=== PATIENT | female | born 1995 | race Hispanic/Latino ===

== ENCOUNTER 2018-07-26 13:13 | Inpatient (IN) | payer MEDICAID, SELFPAY ==
[2018-07-26 13:54] VITALS: BMI 28.5
[2018-07-26] MEDS ORDERED: Betamet Acet/Betamet Na Ph 30 MG/5 ML VIAL ONE (14:39)
[2018-07-26] MEDS ORDERED: Magnesium Sulfate 20 gm/500 ml 20 GM/500 ML BAG ONE (14:42)
[2018-07-26] MEDS ORDERED: Lactated Ringer's 1,000 ML IV SCH (14:51)
[2018-07-26] MEDS ORDERED: Promethazine HCl 25 MG/ML VIAL IM PRN ×3 (14:51→20:32)
[2018-07-26] MEDS ORDERED: Butorphanol Tartrate 1 MG/ML VIAL SLOW IVP PRN (14:51)
[2018-07-26] MEDS ORDERED: Lidocaine 1% (PF) 30 ML VIAL SC PRN (14:51)
[2018-07-26] MEDS ORDERED: NS / Oxytocin 40 units/1000ml 1,000 ML IV PRN (14:51)
[2018-07-26] MEDS ORDERED: Ondansetron PF 4 MG/2 ML Vial IVP PRN ×3 (14:51→20:32)
[2018-07-26] MEDS ORDERED: Calcium Gluc 4.6 MEQ/10 ML (100 MG/ML) SLOW IVP PRN (14:51)
[2018-07-26] MEDS ORDERED: Bicitra 30 ML UDCUP PO SCH (14:51)
[2018-07-26] MEDS ORDERED: CEFAZOLIN 2 GM in Premix Bag 1 BAG IVPB SCH ×2 (14:51→17:15)
[2018-07-26] MEDS ORDERED: Penicillin G Potassium 5 MILL.UNITS VIAL ONE (14:58)
[2018-07-26] MEDS ORDERED: Betamet Acet/Betamet Na Ph 30 MG/5 ML VIAL IM SCH (15:00)
[2018-07-26] MEDS ORDERED: Penicillin G Potassium 5 MILL.UNITS in Sodium Chloride 0.9% 100 ML IVPB SCH (15:00)
[2018-07-26] MEDS ORDERED: Magnesium Sulfate 20 gm/500 ml 20 GM/500 ML BAG IVPB SCH (15:00)
[2018-07-26 15:06] LABS: Hemoglobin 11.5 g/dL (12.0-16.0); Mean Corpuscular HGB CONC 32.9 g/dL (32.0-36.0); Mean Corpuscular Hemoglobin 30.4 pg (27.0-31.0); Mean Corpuscular Volume 92.2 fL (78.0-98.0); Mean Platelet Volume 9.9 fL (7.4-10.4); Platelet Count 220 thou/uL (130-400); RBC Distribution Width 12.3 % (11.5-14.5); Red Blood Cell (RBC) Count 3.77 mill/uL (4.20-5.40); White Blood Cell (WBC) Count 12.6 thou/uL (4.8-10.8)
[2018-07-26] MEDS ORDERED: Dexamethasone 20 MG/5 ML VIAL ONE (15:12)
[2018-07-26] MEDS ORDERED: Ketorolac Tromethamine 30 MG/ML VIAL ONE ×2 (15:12→18:28)
[2018-07-26] MEDS ORDERED: PHENYLEPHRINE-NS 100 MCG/ML 10 ML SYRINGE ONE ×2 (15:12→17:13)
[2018-07-26] MEDS ORDERED: Ondansetron PF 4 MG/2 ML Vial ONE ×2 (15:12→17:13)
[2018-07-26 15:39] LABS: Syphilis Antibody Nonreactive (Nonreactive); Syphilis Antibody Index 0.02 S/CO (<1.00 Non-Reactive)
[2018-07-26] MEDS ORDERED: Indomethacin 25 mg Capsule PO SCH ×2 (15:45→21:00)
--- NOTE | 2018-07-26 15:48 | HP ---
TIME OF ADMISSION: 1445 hours. REASON FOR ADMISSION: A 25 weeks' gestation with labor. HISTORY OF PRESENT ILLNESS: Ms. Modesto Pina is a 23-year-old, G1, P1, who is at 25 weeks and 4 days by stated MATILDE of 11/04/18, who receives care in [place]. She reports some bleeding today and mild back pain. She denies rupture of membranes. She reports an active fetus. Antepartum records not available. The patient reports uncomplicated . CERTIFIED SKI PATROLLER HISTORY: As noted in the HPI. MEDICAL HISTORY: Denies. SURGICAL HISTORY: Denies. MEDICATIONS: vitamins. ALLERGIES: DENIES. SOCIAL HISTORY: Denies tobacco, alcohol, or IV drug abuse. FAMILY HISTORY: Noncontributory. REVIEW OF SYSTEMS: Noncontributory. PHYSICAL EXAMINATION: GENERAL: female, resting comfortably. VITAL SIGNS: Blood pressure 118/72, pulse 85, respirations 18, and temperature 98.4. HEENT: Within normal limits. LUNGS: Clear to auscultation bilaterally. HEART: Regular rhythm. ABDOMEN: Soft. No obvious palpable contractions noted. No CVA tenderness noted. Vulva is without lesions. Vagina; vaginal exam was performed. Large bag of water without palpable cervix was encountered. EXTREMITIES: Without clubbing, cyanosis, or edema. FHTs are 140s. DIAGNOSTIC STUDIES: Bedside ultrasound was performed by myself, revealed a fetus in transverse presentation with the head in the maternal left upper quadrant. The placenta seemed to be anterior. The cervix was approximately 3 cm dilated, at the level of the internal cervical os, and bulging bag of water up to 6 to 7 cm was noted in the vagina. Of note, there was no evidence of umbilical cord in the amniotic bag. IMPRESSION: cervical dilatation, possible early labor with bulging bag of water. At this time, no evidence of chorioamnionitis, abruption, or active labor. PLAN: We will admit the patient, stabilize with IV fluids, magnesium sulfate neuroprotection, betamethasone for lung maturity, penicillin for group B Strep status unknown at 25 weeks gestation, draw a full OB lab panel, and assess the patient's true gestational age, EFW, with ultrasound, and assess for labor versus cervical incompetence. If no evidence of active labor, we will attempt to facilitate maternal transport to [place] or [place] for higher level of care for [address] Sy, business process manager notified of the patient's presence on the unit. Job ID: [id number] MTDD
--- NOTE | 2018-07-26 16:03 | ULT ---
ULTRASOUND OBSTETRICAL COMPLETE: DATE: 07/26/2018. HISTORY: A 23-year-old female with labor and bulging sac. Dr. Alexis and nurse Michael were present during the ultrasound scan and are aware of the findings. FINDINGS: number: Wong. lie: Transverse with head to maternal left. Maternal cervix: Dilated. Internal os is approximately 1.5 cm in caliber, allowing amniotic fluid co ntained within membrane to herniate into the vaginal cavity. This herniated portion of the amniotic sac measures approximately 8 cm in diameter. Placenta: Anterior. Inferior edge of placenta is at the edge of the open internal cervical os, but d oes not cover it. Amniotic fluid volume: JUAN R 13 cm. heart rate: 168 b.p.m. The following anatomy is visualized, with no evidence of anomalies: Head, lateral ventricles, 4-chamber heart, stomach, kidneys, cord insertion, bladder, lower extremiti es, and 3-vessel cord. biometry: Head circumference (HC): 23.2 cm 25 w 1 d Biparietal diameter (BPD): 6.3 cm 25 w 4 d Abdominal circumference (AC): 21.0 cm 25 w 4 d Femur length (FL): 4.6 cm 25 w 2 d Average ultrasound age (AUA): 25 w 2 d Estimated date of delivery (MATILDE): 11/06/2018. Last menstrual period (LMP): 01/28/2018. Gestational age by LMP: 25 w 4 d. Estimated weight (EFW): 810 g+/- 120 g (1 lb 13 oz +/- 40z). IMPRESSION: 1. Live late second trimester intrauterine gestation. 2. Estimated gestational age of 25 weeks, 2 days. 3. Transverse lie. 4. Dilated and effaced cervix through which an 8 cm bulging component of amniotic sac and membrane he rniates into the vaginal cavity. CODE CR JN R POS: [facility]
[2018-07-26] MEDS: Lactated Ringer's 1,000 ML IV SCH (16:10)
[2018-07-26 16:37] LABS: HBSAB Concentration 4049.71 mIU/mL; Hep B Surf AB Reactive (NonReactive)
[2018-07-26] MEDS ORDERED: NIFEdipine 10 MG CAP ONE (16:49)
[2018-07-26] MEDS ORDERED: NIFEdipine 10 MG CAP PO PRN (16:51)
[2018-07-26 16:54] LABS: HBSAg Index 0.24 S/CO (0-0.99); HIV (1/2) Antibody/Antigen Non-Reactive (NonReactive); HIV 1/2 INDEX 0.14 S/CO (<1.00); Hep B Surf Ag Non-Reactive S/CO (NonReactive)
[2018-07-26] MEDS ORDERED: NIFEdipine 10 MG CAP PO SCH ×2 (17:00→17:30)
[2018-07-26] MEDS ORDERED: Bicitra 30 ML UDCUP ONE (17:07)
[2018-07-26] MEDS ORDERED: MORPHINE 5 MG/10 ML PF VIAL ONE (17:13)
[2018-07-26] MEDS ORDERED: Dexamethasone 4 mg/ml Vial ONE (17:13)
[2018-07-26] MEDS ORDERED: Oxytocin 10 UNITS/ML VIAL ONE ×2 (17:13→17:51)
--- NOTE | 2018-07-26 17:33 | PRG ---
DATE OF SERVICE: 07/26/2018 TIME OF SERVICE: 1715 hours. SUBJECTIVE: The patient continues to contract despite having received one dose of Procardia as well as her magnesium sulfate loading dose, IV fluids, and stadol. Contractions are now every 1 to 2 minutes. They are firm. They are causing the patient pain, 7 to 8/10. Ultrasound revealed that the internal cervical os is enlarged approximately 3 cm. Umbilical cord is noted to be significantly present in the lower uterine segment and cervix. Considering all these things, it appears there is little hope of prolonging this safely. In addition, awaiting spontaneous rupture of membranes increases the risk of morbidity associated with cord prolapse. We will go ahead and proceed with primary section with classical uterine incision. Anesthesia and Neonatology notified. 2 g [facility] for antibiotic prophylaxis. We will anticipate proceeding with spinal anesthesia. Job ID: [id number]
[2018-07-26] MEDS ORDERED: Ondansetron HCl/PF 4 MG/2 ML Vial IVP PRN (18:26)
[2018-07-26] MEDS ORDERED: HYDROmorphone 2 MG/ML VIAL SLOW IVP PRN (18:26)
[2018-07-26] MEDS ORDERED: Naloxone HCl 0.4 mg/ml Vial IV PRN (18:26)
[2018-07-26] MEDS ORDERED: Promethazine HCl 25 MG SUPP PR PRN (18:26)
[2018-07-26] MEDS ORDERED: L&D-Morphine 4 MG/ML VIAL SLOW IVP PRN (18:26)
[2018-07-26] MEDS ORDERED: Ketorolac Tromethamine 30 MG/ML VIAL IVP PRN (18:26)
[2018-07-26] MEDS ORDERED: diphenhydrAMINE 50 MG/ML VIAL IVP PRN (18:26)
[2018-07-26] MEDS ORDERED: Meperidine HCl/PF 25 MG/ML VIAL SLOW IVP PRN (18:26)
[2018-07-26] MEDS ORDERED: Naloxone HCl 0.4 mg/ml Vial IVP PRN ×2 (18:26)
[2018-07-26] MEDS ORDERED: Eucerin (Mineral Oil/Petrolatum,White) 30 gm Jar TOP PRN (18:26)
[2018-07-26] MEDS ORDERED: Acetaminophen 1,000 MG in Premix Bag 1 BAG IVPB PRN (18:27)
[2018-07-26] MEDS ORDERED: Communication Order-Pharmacy FS SCH (18:30)
[2018-07-26] MEDS ORDERED: Ketorolac Tromethamine 30 MG/ML VIAL IVP SCH (18:30)
[2018-07-26] MEDS ORDERED: Azithromycin 500 MG in Sodium Chloride 0.9% 250 ML 250 ML IVPB SCH ×2 (18:45→20:32)
[2018-07-26] MEDS ORDERED: Penicillin G 2.5 MILL.units 2.5 MILL.UNITS in Premix Bag 1 BAG IVPB SCH (19:00)
--- NOTE | 2018-07-26 19:13 | OP ---
DATE OF PROCEDURE: 07/26/2018 TIME OF SERVICE: 1805 hours. PREOPERATIVE DIAGNOSES: Twenty-five weeks gestation back down transverse lie with labor and umbilical cord between and bag of water in the vagina with anterior placenta. POSTOPERATIVE DIAGNOSES: Twenty-five weeks gestation back down transverse lie with labor and umbilical cord between and bag of water in the vagina with anterior placenta. PROCEDURE PERFORMED: Primary classical section with vertical uterine incision. FORM LAYER: Miquel Ospina MD ANESTHESIA: Luís Wooten DO, subarachnoid block. MEDICATIONS: 2 g Ancef preincision. Zithromax 500 IV piggyback in recovery. DVT PROPHYLAXIS: SCDs. DRAINS: [place] to gravity. OPERATIVE FINDINGS: 1. Female infant, 790 g, 1 pounds 12 ounces. Apgars 2 and 6. To NICU, then back down transverse lie presentation, delivered. 2. Normal appearing uterus, tubes, and ovaries bilaterally. 3. Hemostasis. Clear urine. COUNTS: Correct at the end of the procedure. DISPOSITION: Recovery room in good condition. DESCRIPTION OF PROCEDURE: After decision to proceed with have been made, the patient was taken to the operating room. Subarachnoid block was placed with the patient in the lateral position to avoid increased risk of rupture of membranes. The patient was prepped and draped in the usual manner. A Pfannenstiel skin incision was made, carried down sharply to the fascia and the midline was incised sharply to the superior and laterally with curved Eason scissors. Rectus dissected off sharply superiorly and inferiorly, divided midline, peritoneum entered bluntly, taking care to avoid trauma to the underlying viscera. [place] O retractor was placed inside. Lower uterine segment was noted to be essentially completely undeveloped except for the amount of dilatation that the patient had had. Vesicouterine peritoneal fold was identified, and incised sharply and a bladder flap was dissected off the lower uterine segment. The placenta on ultrasound involved the entire anterior uterine wall and on visualization at operation, this was apparent as well. Decision was made to proceed with a classical uterine incision, which was made from just above the level of the internal cervical os toward the fundus. Upon entry into the endometrial cavity, the placenta was encountered. However, because of the small size of the fetus, in its breech presentation, the easiest delivery route was just to remove the placenta and deliver in-call, which was accomplished in less than 10 seconds. Once the in-call fetus and placenta was on the abdomen, the membranes ruptured, the fetus pulled out. Cord clamped and cut and handed off to the care in attendance. Cord blood samples were not obtained. The placenta was sent for pathology. The uterus was inspected and the hysterotomy noted to be without extension. It was closed in a 2 layer manner using 0 Monocryl. Good hemostasis was noted after closure. The uterus was placed back inside the abdominal cavity. Suction and irrigation were carried out, which revealed the bladder flap and the hysterotomy to be dry. Rectus was reapproximated using 0 chromic suture. After inspecting and noting it to be dry, the fascia was reapproximated in a running continuous 0 PDS suture. Subcutaneous tissue irrigated, rendered hemostatic with Bovie cautery, reapproximated using a 2-0 plain gut and the subcuticular stitch of 4-0 Monocryl. Dermabond was placed. The patient was taken to the recovery room in good condition. She will receive Zithromax and enter into routine care. Job ID: [id number] [facility] CENTEREnedelia
[2018-07-26] MEDS ORDERED: Meperidine HCl/PF 25 MG/ML VIAL IM PRN (20:32)
[2018-07-26] MEDS ORDERED: diphenhydrAMINE 25 MG CAP PO PRN (20:32)
[2018-07-26] MEDS ORDERED: Acetaminophen 325 MG TAB PO PRN (20:32)
[2018-07-26] MEDS ORDERED: Lanolin Ointment 7 GM TUBE TOP PRN (20:32)
[2018-07-26] MEDS ORDERED: Zolpidem Tartrate 5 MG TAB PO PRN (20:32)
[2018-07-27] MEDS ORDERED: Ketorolac Tromethamine 30 MG/ML VIAL IVP PRN (02:30)
[2018-07-27] MEDS: Ibuprofen 800 MG TAB PO SCH ×3 (06:10→21:34)
[2018-07-27] MEDS: Lactated Ringer's 1,000 ML IV SCH ×4 (06:14→22:43)
--- NOTE | 2018-07-27 06:50 | PDOC.PP ---
Post Progress Note Post Day #: 1 PO intake tolerated: yes Flatus: yes Ambulation: yes Vital Signs (12 hours) Temp Pulse Resp BP Pulse Ox 07/27/18 01:00 98.2 F 85 17 115/56 L 07/26/18 22:30 97.8 F 89 17 110/60 07/26/18 21:30 98.3 F 88 17 117/60 98 Weight Weight 166 lb - Physical Examination General: NAD Cardiovascular: no m/r/g, RRR Respiratory: clear to auscultation bilaterally, non-labored breathing Abdominal: + bowel sounds, lochia, no distention, appropriately TTP Extremities: negative homans (B) Skin: CS incision dry & intact, no rash Neurological: no gross focal deficits Psychiatric: A&Ox3, normal affect Result Diagrams: 07/26/18 14:53 Additional Labs: Post Labs Blood Type O POSITIVE 07/26/18 15:38 Hep Bs Antigen Non-Reactive S/CO (NonReactive) 07/26/18 14:53 (1) NB deliv by , 750-999 grams, 25-26 completed weeks Code(s): [id number] - Status: Acute - Assessment/Plan ding well. doing as expected in nicu. am hct pending but no s/sx of excessive blood loss. routing post cs care. anticipate dc on 07/29
[2018-07-27 07:30] LABS: Hemoglobin 9.5 g/dL (12.0-16.0); Mean Corpuscular Volume 91.1 fL (78.0-98.0); Mean Platelet Volume 9.9 fL (7.4-10.4); Platelet Count 209 thou/uL (130-400); RBC Distribution Width 12.1 % (11.5-14.5); Red Blood Cell (RBC) Count 3.07 mill/uL (4.20-5.40); White Blood Cell (WBC) Count 18.5 thou/uL (4.8-10.8)
--- NOTE | 2018-07-27 08:50 | PRG ---
DATE OF SERVICE: 07/26/2018 ADDENDUM: TIME OF SERVICE: 1542. Laboratory reveals a hematocrit of 35% with normal platelet count and a white count of 12.6. Blood type is O positive, antibody negative. Ultrasound was performed, report is not back. I was at the bedside. Ultrasound confirmed backdown transverse lie with the head in the maternal left upper quadrant. Placenta is completely involving the anterior uterus from just above the internal cervical os to the fundus. The internal cervical os is measuring 2 cm. There is approximately a 7 cm bulging bag of water into the vagina. Of note, the umbilical cord is noted to be between the back and the internal cervical os. It is not going through the os. It is not into the portion of the bag of water that is in the vagina. I had a telephone discussion with Dr. Tony Andino, who is an M in [place]. He recommended indomethacin 50 mg loading dose and 25 mg q.6 hours to help decrease urine output and perhaps decrease the amount of amniotic fluid. We also discussed the ultrasound findings and he agreed with my assessment that a classical uterine incision would be required at any section. I have discussed the patient's plan of care with Dr. Nu Sy, neonatology on-call, he agrees with my plan. We will continue with magnesium, antibiotics, corticosteroids, and now indomethacin. We will watch for signs of labor. If rupture of membranes, we will proceed with emergent section. I have discussed plan of care with the patient through farm equipment engineer, family member who is accompanying her and speaks fluent Wallisian and Vincentian. Job ID: [id number]
[2018-07-27] MEDS ORDERED: Adacel (T-DAP) 0.5 ML SYRINGE IM ONE (09:00)
[2018-07-27] MEDS: Prenatal Vitamin 1 TAB PO SCH (09:11)
[2018-07-27] MEDS: Simethicone Chewable 80 MG TAB PO PRN ×2 (10:05→21:34)
[2018-07-27] MEDS: HYDROcodone/Acetaminophen 5/325 mg Tablet PO PRN ×2 (10:05→16:41)
[2018-07-28] MEDS: Simethicone Chewable 80 MG TAB PO PRN ×2 (04:29→22:20)
[2018-07-28] MEDS: HYDROcodone/Acetaminophen 5/325 mg Tablet PO PRN ×3 (04:30→22:22)
[2018-07-28] MEDS: Ibuprofen 800 MG TAB PO SCH ×3 (05:32→22:20)
[2018-07-28] MEDS: Prenatal Vitamin 1 TAB PO SCH (09:37)
[2018-07-28] MEDS: Lactated Ringer's 1,000 ML IV SCH ×3 (09:41→23:51)
--- NOTE | 2018-07-28 17:50 | PRG ---
DATE OF SERVICE: 07/28/2018 TIME OF SERVICE: 1700 hours. SUBJECTIVE: The patient is resting comfortably. She reports on checking in the nursery the baby is doing well without any significant complications. OBJECTIVE: VITAL SIGNS: Temperature 97.8, T-max 97.8, respirations 16, pulse 71, and blood pressure 131/68. HEENT: Within normal limits. LUNGS: Clear to auscultation bilaterally. HEART: Regular rate and rhythm. ABDOMEN: Soft and nontender without rebound or guarding. Incision is intact and dry. No erythema. EXTREMITIES: Without clubbing, cyanosis, or edema. IMPRESSION: Doing well, postop day #2, status post primary classical section for back-down transverse lie, 25 weeks gestation. PLAN: Routine care. Discharge tomorrow. The patient was checked out to Dr. Wagner. Job ID: [id number]
--- NOTE | 2018-07-29 00:40 | PDOC.PP ---
Post Progress Note Post Day #: POD3# Subjective: No c/o. Ambulating to NICU. Tolerating regular diet. PO intake tolerated: yes Flatus: yes Ambulation: yes Vital Signs (12 hours) Temp Pulse Resp BP Pulse Ox 07/28/18 19:13 97.7 F 86 18 117/59 L 98 Weight Weight 75.296 kg - Physical Examination General: NAD Respiratory: non-labored breathing Abdominal: no distention Skin: CS incision dry & intact Psychiatric: normal affect Result Diagrams: 07/27/18 07:17 Additional Labs: Post Labs Blood Type O POSITIVE 07/26/18 15:38 Hep Bs Antigen Non-Reactive S/CO (NonReactive) 07/26/18 14:53 Rubella IgG Antibody 1.46 index (Immune >0.99) 07/26/18 15:38 - Assessment/Plan DC home. Precautions. RTC 2 weeks at [facility].
[2018-07-29] MEDS: Ibuprofen 800 MG TAB PO SCH (05:48)
[2018-07-29] MEDS: Lactated Ringer's 1,000 ML IV SCH (05:59)
[2018-07-29 07:48] VITALS: BP 126/72; TEMP 98.2
[2018-07-29] MEDS: Prenatal Vitamin 1 TAB PO SCH (09:56)
[2018-08-01] MEDS ORDERED: Indomethacin 25 mg Capsule PO SCH (03:00)
== END 2018-07-29 11:00 | disposition home or self-care (01) | DRG 788 ==
LOC: L&D/OP 13:13 → L&D 15:56 → 3SW 21:41
PROVIDERS: ADMIT Obstetrics & Gynecology; ATTEND Obstetrics & Gynecology
PROC: 10D00Z0 Extraction of Products of Conception, High, Open Approach (ICD-10-PCS; principal; 2018-07-26)
DX: O60.12X0 Preterm labor second trimester with preterm delivery second trimester, not applicable or unspecified (principal); Z3A.25 25 weeks gestation of pregnancy; Z37.0 Single live birth; O32.2XX0 Maternal care for transverse and oblique lie, not applicable or unspecified; O69.9XX0 Labor and delivery complicated by cord complication, unspecified, not applicable or unspecified
CPT/HCPCS: 36415; 51702; 76805; 85027; 86706; 86762; 86780; 86850; 86900; 86901; 87340; 87389; 88307; 99285; J0456; J0595; J0702; J1100; J1885; J2270; J2405; J2540; J2590; J3475; J7050